=== PATIENT | male | born 1965 | race Caucasian/White ===

== ENCOUNTER 2021-06-03 06:01 | Outpatient (REF) | payer BC, SELFPAY ==
[2021-06-03 11:33] LABS: MANUAL DIFF FLAG NO
[2021-06-03 11:42] LABS: Basophils Absolute Auto 0.1 X10*3/uL (0.0-0.2); Basophils Percent Auto 1.9 % (0-2); Eosinophils Absolute Auto 1.1 X10*3/uL (0.0-0.4); Eosinophils Percent Auto 22.9 % (0-4); Hematocrit 43.6 % (42.0-52.0); Hemoglobin 14.7 g/dl (14.0-18.0); Imm Gran Abs Auto 0.01 X10*3/uL (0.00-0.03); Imm Gran Pct Auto 0.2 % (0.0-0.4); Lymphocytes Absolute Auto 1.5 X10*3/uL (1.2-4.9); Lymphocytes Percent Auto 31.8 % (20-40); Mean Corpuscular HGB Conc 33.7 g/dl (31.0-36.0); Mean Corpuscular Hemoglobin 31.6 pg (27.0-33.0); Mean Corpuscular Volume 93.8 fL (80.0-98.0); Monocytes Absolute Auto 0.4 X10*3/uL (0.1-1.2); Monocytes Percent Auto 7.6 % (2-11); Neutrophils Absolute Auto 1.73 x10*3/uL (2.0-8.3); Neutrophils Percent Auto 35.6 % (45-73); Platelet Count 233 X10*3/uL (160-400); Red Blood Count 4.65 X10*6/uL (4.60-5.80); Red Cell Distribution Width 13.1 % (11.0-16.0); White Blood Count 4.9 X10*3/uL (4.8-10.8)
[2021-06-03 11:59] LABS: Alanine Aminotransferase 25 U/L (0-40); Albumin Level 4.5 g/dL (3.5-5.0); Alkaline Phosphatase 61 U/L (39-117); Anion Gap 10 (12-20); Aspartate Amino Transferase 28 U/L (5-37); Bilirubin Total 0.5 mg/dL (0.0-1.0); Blood Urea Nitrogen 15 mg/dL (9-16); Calcium 9.3 mg/dL (8.4-10.2); Carbon Dioxide 30 mmol/L (22-29); Chloride 103 mmol/L (96-108); Cholesterol 192 mg/dL; Estimated Glomerular Filt Rate > 60; Glucose Fasting 92 mg/dL (60-99); HDL Cholesterol 52 mg/dL; LDL Cholesterol Calculated 107 mg/dl; Sodium 139 mmol/L (135-145); Triglycerides 166 mg/dL
== END 2021-06-03 06:02 | disposition home or self-care (01) ==
LOC: HO.HMGCLDS 06:01
PROVIDERS: PCP Internal Medicine; Visit Provider Internal Medicine
DX: Z00.01 Encounter for general adult medical examination with abnormal findings (principal); M72.0 Palmar fascial fibromatosis [Dupuytren]; L29.9 Pruritus, unspecified
CPT/HCPCS: 36415; 80053; 80061; 85025

== ENCOUNTER 2021-06-10 09:05 | Outpatient (REF) | payer BC, SELFPAY ==
--- NOTE | ~2021-06-10 | XR_ITS ---
EXAMINATION: XR CHEST CLINICAL INFORMATION: Cough COMPARISON: None TECHNIQUE: 2 views of the chest were obtained. FINDINGS: Cardiac silhouette is normal in size. The lungs are well aerated. There is no lobar consolidation. No pleural effusion or pneumothorax. No acute osseous abnormality. XR/XR chest 2V IMPRESSION: No acute pulmonary pathology.
== END 2021-06-10 09:06 | disposition home or self-care (01) ==
LOC: HO.HMGCX 09:05
PROVIDERS: PCP Internal Medicine; Visit Provider Physician Assistant Medical
DX: R05.9 Cough, unspecified (principal)
CPT/HCPCS: 71046

== ENCOUNTER 2021-07-01 14:38 | Outpatient (REF) | payer BC, SELFPAY ==
[2021-07-01 15:24] LABS: MANUAL DIFF FLAG NO
[2021-07-01 15:42] LABS: Basophils Absolute Auto 0.1 X10*3/uL (0.0-0.2); Basophils Percent Auto 0.6 % (0-2); Eosinophils Absolute Auto 0.1 X10*3/uL (0.0-0.4); Eosinophils Percent Auto 1.7 % (0-4); Hematocrit 45.3 % (42.0-52.0); Hemoglobin 15.5 g/dl (14.0-18.0); Imm Gran Abs Auto 0.02 X10*3/uL (0.00-0.03); Imm Gran Pct Auto 0.2 % (0.0-0.4); Lymphocytes Absolute Auto 1.5 X10*3/uL (1.2-4.9); Lymphocytes Percent Auto 17.9 % (20-40); Mean Corpuscular HGB Conc 34.2 g/dl (31.0-36.0); Mean Corpuscular Hemoglobin 31.9 pg (27.0-33.0); Mean Corpuscular Volume 93.2 fL (80.0-98.0); Monocytes Absolute Auto 0.7 X10*3/uL (0.1-1.2); Monocytes Percent Auto 8.6 % (2-11); Neutrophils Absolute Auto 5.8 x10*3/uL (2.0-8.3); Platelet Count 234 X10*3/uL (160-400); Red Blood Count 4.86 X10*6/uL (4.60-5.80); Red Cell Distribution Width 13.2 % (11.0-16.0); White Blood Count 8.1 X10*3/uL (4.8-10.8)
== END 2021-07-01 14:39 | disposition home or self-care (01) ==
LOC: HO.LAB 14:38
PROVIDERS: PCP Internal Medicine; Visit Provider Internal Medicine Pulmonary Disease
DX: J30.89 Other allergic rhinitis (principal); R05.9 Cough, unspecified
CPT/HCPCS: 36415; 82785; 85025; 86003

== ENCOUNTER 2021-07-08 15:36 | Outpatient (REF) | payer BC, SELFPAY ==
--- NOTE | 2021-07-08 17:43 | PFT_ITS ---
LOWS: FEV1 107% of predicted at 3.94 L. FVC 101% of predicted at 4.89 L. FEV1 to FVC ratio of 0.81. No bronchodilator response except in small to medium airways. LUNG VOLUMES: Total lung capacity 104% of predicted at 7.30 L. Residual volume 105% of predicted at 2.31 L. Slow vital capacity 104% of predicted at 4.98 L. Expiratory reserve volume 105% of predicted at 1.49 L. Diffusion capacity is normal. IMPRESSION: No obstructive or restrictive ventilatory defect. No bronchodilator response. Essentially normal pulmonary function test. Jamil Bridges MD AP/MODL / [id number]
== END 2021-07-08 15:37 | disposition home or self-care (01) ==
LOC: HO.RESP 15:36
PROVIDERS: PCP Internal Medicine; Visit Provider Internal Medicine Pulmonary Disease
DX: R05.9 Cough, unspecified (principal)
CPT/HCPCS: 94060; 94727; 94729

== ENCOUNTER → 2021-07-16 15:11 | Outpatient (BNVA) | payer BC, SELFPAY | PROVIDERS: PCP Internal Medicine; Visit Provider Internal Medicine Pulmonary Disease | DX: J30.89 Other allergic rhinitis (principal); R05.9 Cough, unspecified ==

== ENCOUNTER → 2021-11-05 15:19 | Outpatient (BNVA) | payer BC, SELFPAY | PROVIDERS: PCP Internal Medicine; Visit Provider Surgery Vascular Surgery | DX: Z13.89 Encounter for screening for other disorder (principal) ==

== ENCOUNTER 2021-12-12 07:46 | Outpatient (REF) | payer BC, SELFPAY ==
--- NOTE | ~2021-12-12 | US_ITS ---
EXAMINATION: US LOWER EXTREMITY VENOUS (REFLUX EXAM), BILATERAL CLINICAL INDICATION: This is a 56-year-old male with venous insufficiency and varicose veins. COMPARISON: None. TECHNIQUE: Color flow triplex imaging and compression Doppler was performed to evaluate both the deep and the superficial systems bilaterally. To evaluate the superficial system, the examination was performed in the upright position. Color-flow Doppler ultrasound and compression ultrasound were utilized. In addition, maneuvers were utilized to demonstrate reflux. FINDINGS: 1. DEEP VENOUS ULTRASOUND OF THE RIGHT LOWER EXTREMITY: Common Femoral Vein: Compressible, normal respiratory variation and augmented flow. Femoral vein: Compressible, normal color flow and augmentation. Popliteal Vein: Compressible, normal augmentation. Deep Reflux: There is no evidence of reflux in the deep system in either the common femoral vein or the popliteal vein. There is no evidence of a Masters's cyst. 2. SUPERFICIAL ULTRASOUND WITH DOPPLER OF RIGHT LOWER EXTREMITY: GREAT SAPHENOUS VEIN: Saphenofemoral Junction: 1.1 cm. The reflux time is 2820 ms. Mid Thigh: 0.7 cm. The reflux time is 3356 ms. Above Knee: 0.8 cm. The reflux time is 3212 ms. Below Knee: 0.7 cm. The reflux time is 3192 ms. Mid Calf: 0.3 cm. There is no reflux to Ankle: 0.3 cm. There is no reflux to GSV REFLUX: No evidence of reflux. DUPLICATED GREAT SAPHENOUS VEIN: None SMALL SAPHENOUS VEIN: Proximal: 0.4 cm Distal: 0.2 cm SSV REFLUX: No evidence of reflux. VEIN OF GIACOMINI: None Imaged. PERFORATORS: There is a 0.3 cm mid thigh chief medical director without reflux. VARICOSITIES: There are 0.5 cm and 0.9 cm, respectively, proximal calf varicose veins with greater than 2 seconds of reflux. There are anterior mid calf 0.6 cm varicose veins with greater than 3 seconds of reflux. 3. DEEP VENOUS ULTRASOUND OF THE LEFT LOWER EXTREMITY: Common Femoral Vein: Compressible, normal respiratory variation and augmented flow. Femoral Vein: Compressible, normal color flow and augmentation. Popliteal Vein: Compressible, normal augmentation. Deep Reflux: There is no evidence of reflux in the deep system in either the common femoral vein or the popliteal vein. There is no evidence of a Masters's cyst. 4. SUPERFICIAL ULTRASOUND WITH DOPPLER OF LEFT LOWER EXTREMITY: GREAT SAPHENOUS VEIN: Saphenofemoral Junction: 0.8 cm Mid Thigh: 0.3 cm Above Knee: 0.3 cm Below Knee: 0.3 cm Mid Calf: 0.2 cm Ankle: 0.2 cm GSV REFLUX: No evidence of reflux. DUPLICATED GREAT SAPHENOUS VEIN: None SMALL SAPHENOUS VEIN: Proximal: 0.1 cm Distal: 0.2 cm SSV REFLUX: No evidence of reflux. VEIN OF GIACOMINI: None Imaged. PERFORATORS: There are 0.5 cm mid thigh perforators without reflux. VARICOSITIES: None Imaged US/US venous duplex LE BI IMPRESSION: 1. There is a patent right great saphenous vein with reflux at the saphenofemoral junction which extends down below the knee. This is supplying the varicose veins. 2. There is a patent right small saphenous vein without reflux. 3. There are right calf varicose veins with reflux. There may be some thrombus within these varicose veins within the calf suggesting superficial thrombophlebitis. 4. There is a patent left great saphenous vein without reflux. 5. There is a patent left small saphenous vein without reflux. 6. No varicose veins are imaged in the left leg. However, perforators are identified.
== END 2021-12-12 07:47 | disposition home or self-care (01) ==
LOC: HO.US 07:46
PROVIDERS: Visit Provider Surgery Vascular Surgery
DX: I83.11 Varicose veins of right lower extremity with inflammation (principal)
CPT/HCPCS: 93970

== ENCOUNTER → 2021-12-19 15:29 | Outpatient (BNVA) | payer BC, SELFPAY | PROVIDERS: PCP Internal Medicine; Visit Provider Surgery Vascular Surgery | DX: I83.11 Varicose veins of right lower extremity with inflammation (principal) ==

== ENCOUNTER → 2021-12-27 07:27 | Outpatient (BNVA) | payer BC, SELFPAY | PROVIDERS: PCP Internal Medicine; Visit Provider Surgery Vascular Surgery | DX: I83.11 Varicose veins of right lower extremity with inflammation (principal) | CPT/HCPCS: 36475 ==

== ENCOUNTER 2021-12-31 08:20 | Outpatient (REF) | payer BC, SELFPAY ==
--- NOTE | ~2021-12-31 | US_ITS ---
EXAMINATION: US VENOUS ULTRASOUND WITH DOPPLER LOWER EXTREMITY, RIGHT CLINICAL INFORMATION: Pain in right leg. Post great saphenous vein ablation COMPARISON: Ultrasound 12/12/2021 TECHNIQUE: Ultrasound of the deep veins is performed from the hip to the calf with compression sonography and color and pulse Doppler assessment. Spectral analysis with color-flow imaging is performed. FINDINGS: There is normal venous compression and respiratory variation and augmented flow. The visualized common femoral vein, superficial femoral vein, profunda femoral vein, popliteal vein, and the trifurcation region shows no evidence of deep venous thrombosis. There is thrombosis/occlusion of the great saphenous vein extending to within 5 mm of the saphenofemoral junction. There is no significant popliteal fossa cyst. 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 While occlusion extends to within 5 mm of the saphenofemoral junction, there is no involvement of the deep system.
== END 2021-12-31 08:21 | disposition home or self-care (01) ==
LOC: HO.US 08:20
PROVIDERS: Visit Provider Surgery Vascular Surgery
DX: M79.604 Pain in right leg (principal)
CPT/HCPCS: 93971

== ENCOUNTER 2022-09-16 06:17 | Outpatient (REF) | payer BC, SELFPAY ==
[2022-09-16 11:28] LABS: MANUAL DIFF FLAG NO
[2022-09-16 11:32] LABS: Basophils Absolute Auto 0.1 X10*3/uL (0.0-0.2); Basophils Percent Auto 1.1 % (0-2); Eosinophils Absolute Auto 0.5 X10*3/uL (0.0-0.4); Eosinophils Percent Auto 10.6 % (0-4); Hemoglobin 15.1 g/dl (14.0-18.0); Lymphocytes Absolute Auto 1.8 X10*3/uL (1.2-4.9); Lymphocytes Percent Auto 39.6 % (20-40); Mean Corpuscular HGB Conc 33.6 g/dl (31.0-36.0); Mean Corpuscular Hemoglobin 30.8 pg (27.0-33.0); Mean Corpuscular Volume 91.8 fL (80.0-98.0); Monocytes Absolute Auto 0.4 X10*3/uL (0.1-1.2); Monocytes Percent Auto 8.8 % (2-11); Neutrophils Absolute Auto 1.8 x10*3/uL (2.0-8.3); Neutrophils Percent Auto 39.9 % (45-73); Platelet Count 220 X10*3/uL (160-400); Red Cell Distribution Width 13.3 % (11.0-16.0); White Blood Count 4.5 X10*3/uL (4.8-10.8)
[2022-09-16 12:03] LABS: Alanine Aminotransferase 31 U/L (0-40); Albumin Level 4.4 g/dL (3.5-5.0); Alkaline Phosphatase 66 U/L (39-117); Anion Gap 14 (12-20); Aspartate Amino Transferase 28 U/L (5-37); Bilirubin Total 0.7 mg/dL (0.0-1.0); Blood Urea Nitrogen 20 mg/dL (9-16); Calcium 9.6 mg/dL (8.4-10.2); Carbon Dioxide 26 mmol/L (22-29); Chloride 105 mmol/L (96-108); Cholesterol 218 mg/dL; Estimated Glomerular Filt Rate > 60; Glucose Fasting 97 mg/dL (60-99); HDL Cholesterol 54 mg/dL; LDL Cholesterol Calculated 130 mg/dl; Potassium 4.2 mmol/L (3.3-5.1); Sodium 141 mmol/L (135-145); Total Protein 6.7 g/dL (6.5-8.0); Triglycerides 174 mg/dL
== END 2022-09-16 06:18 | disposition home or self-care (01) ==
LOC: HO.HMGCLDS 06:17
PROVIDERS: PCP Internal Medicine; Visit Provider Internal Medicine
DX: Z00.00 Encounter for general adult medical examination without abnormal findings (principal)
CPT/HCPCS: 36415; 80053; 80061; 85025

== ENCOUNTER 2023-06-17 08:28 | Outpatient (AMB) | payer BC, SELFPAY ==
--- NOTE | 2023-06-17 08:44 | AM.OFFVISNUR ---
Intake Intake Visit Reasons: Flu Vaccine Intake Note: Pt arrived for annual flu vaccine Allergies No Known Allergies Allergy (Verified 09/03/22 15:18) Office Procedures Flu Questionnaire Does the patient have a severe egg allergy?: No Does the patient have severe life threatening allergies?: No Does the patient have a fever or illness today?: No Has the patient ever had Guillain-Ringwood Syndrome?: No Has the patient ever had any past reaction to a flu shot?: No Immunizations flu vacc [id number] 6mos up(PF) 60 mcg(15 mcgx4)/0.5 mL IM syringe Performing Provider: Arsenio Schmidt MD Performing Location: [facility] Administered by: Ann-Marie Pearl RN on 06/17/23 08:44 Dose Route Admin Location Dispensed Lot Number Expiration Date NDC [employer] Laboratory Technician 0.5 mL IM Right Deltoid 0.5 mL [id number] 01/31/24 [id number] [employer] VIS Given Date VIS Provided VIS Publication Date 06/17/23 Single Vaccine 21 Eligibility Eligibility Date Funding Source Not [facility] Eligible 06/17/23 Private Coding Assessment & Plan Assessment & Plan Orders: Orders Influenza [id number] Immunization Today Z23 - Encounter for immunization
== END 2023-06-17 09:09 | disposition home or self-care (01) ==
PROVIDERS: PCP Internal Medicine; Visit Provider Internal Medicine
DX: Z23 Encounter for immunization (principal)
CPT/HCPCS: 90471; 90686

== ENCOUNTER 2023-11-04 10:48 | Outpatient (AMB) | payer OTHER, SELFPAY ==
[2023-11-04 10:52] VITALS: BP 106/66; PULSE 64; O2SAT 97; BMI 22.5
--- NOTE | 2023-11-04 10:52 | A.OFFPC_ITS ---
Vital Signs 11/04/23 10:52 Height 5 ft 10 in Weight 157 lb BMI 22.5 BP 106/66 Blood Pressure Location Rt brachial Position Sitting Pulse 64 Pulse Source Pulse Oximeter Pulse Oximetry (%) 97 Oxygen Delivery Method Room Air Intake Visit Reasons: Annual PE Allergies No Known Allergies Allergy (Verified 11/04/23 10:53) Medication List - Last Reconciled 11/04/23 by Arseino Schmidt MD cetirizine (Zyrtec) 10 mg PO DAILY PRN Tobacco use date assessed: 11/04/23 Dental Screening Dental Screen Date: 11/04/23 Did you have a dental visit in the last 12 months?: Yes Did you have a dental problem in the last 6 months where you did not have access to dental care?: No Was dental information given to patient?: Patient has dentist HPI Annual PE HPI Details Patient is 58-year-old gentleman He is due for colonoscopy, referral placed Lab order placed to be done fasting, we do labs once a year when he comes in for annual exam On examination I sensed some irregularity in his heart rate We did the EKG which showed bradycardia heart rate of 49 per minute Patient says that when he is sleeping sometimes is heart rate goes as low as 30 I do see small Q-waves in lateral leads I have sent an image of EKG to Cardiology for E consultation [facility] Surgical History Status post ablation of incompetent vein using laser (12/27/21) Social History Housing: House Patient Tobacco Use Status: Never used Tobacco e-Cigarette/Vaping Use: Never Used Second Hand Smoke Exposure: No service: Yes Current occupational status: employed Cognitive needs: No Hearing needs: No Vision needs: Yes Questionnaire PHQ-9 Over the last 2 weeks, how often have you been bothered by any of the following problems? 1. Little interest or pleasure in doing things: not at all 2. Feeling down, depressed, or hopeless: not at all 3. Trouble falling or staying asleep, or sleeping too much: several days 4. Feeling tired or having little energy: not at all 5. Poor appetite or overeating: not at all 6. Feeling bad about yourself - or that you are a failure or have let yourself or your family down: not at all 7. Trouble concentrating on things, such as reading the newspaper or watching television: not at all 8. Moving or speaking so slowly that other people could have noticed. Or the opposite - being so fidgety or restless that you have been moving around a lot more than usual: not at all 9. Thoughts that you would be better off or of hurting yourself in some way: not at all Total score: 1 Depression Screening Interpretation: Negative Depression Screening Done: Yes 76172 - PHQ-9 Billing: Yes Source: Developed by Drs. Rajesh Barajas, Reema Mathew, Alfonzo Pressley and colleagues, with an educational phan from [employer]. Thrive Questionnaire Date Thrive assessed: 11/04/23 I am a: Patient What is your living situation today?: I have a steady place to live Within the past 12 months, did the food you bought not last and you didn't have the money to get more?: Never true Within the past 12 months, did you worry whether your food would run out before you got money to buy more?: Never true Do you have trouble paying for medicines?: No Do you have trouble getting transportation to medical appointments?: No Do you have trouble paying your heating and electricity bill?: No Do you have trouble taking care of your child, family member or friend?: No Do you have trouble with day-to-day activities such as bathing, preparing meals, shopping, managing finances, etc.?: No Are you currently unemployed and looking for a job?: No Are you interested in more education?: No Please select the resources that you would like help with: None Currently or been in a relationship where the following occur: no concerns reported THRIVE Score: 0 AUDIT C Alcohol Use Questionnaire (AUDIT-C) 1. How often do you have a drink containing alcohol?: 2-4 times a month 2. How many drinks containing alcohol do you have on a typical day when you are drinking?: 1 or 2 3. How often do you have six or more drinks on one occasion?: Never Total Score: 2 Score Reviewed/Action Taken: No LU-7 AMB Questionnaire LU-7 Date LU - 7 assessed: 11/04/23 Feeling nervous, anxious, or on edge: 0 = Not at all Not being able to stop or control worryin = Not at all Worrying too much about different things: 1 = Several days Trouble relaxin = Several days Being so restless that it is hard to sit still: 0 = Not at all Becoming easily annoyed or irritable: 0 = Not at all Feeling afraid as if something awful might happen: 0 = Not at all Total LU-7 score (0-4 normal; 5-9 mild; 10-14 moderate; 15-21 severe): 2 Source: Developed by Drs. Rajesh Barajas, Reema Mathew, Alfonzo Pressley and colleagues, with an educational phan from [employer]. LU-7 Assessment Billing LU-7 Assessment Tool: LU-7 Assessment 56345 Review of Systems Const Denies chills, Denies fever(s) and Denies headache(s) Eyes Denies blurry vision ENT Denies headache(s), Denies nasal discharge, Denies nasal obstruction, Denies odynophagia and Denies sinus pain Card Denies chest pain at rest and Denies chest pain with activity Resp Denies cough and Denies hemoptysis GI Denies diarrhea, Denies odynophagia, Denies vomiting and Denies hematemesis Reports as per HPI Musc Denies abnormal gait Skin/Breast Reports as per HPI Neuro Denies Neuro-related abnormal movements, Denies Abnormal speech present, Denies abnormal gait, Denies headache(s) and Denies Sensory deficit (Neuro) Psych Denies mood swings and Denies paranoia Endo Reports as per HPI Oswaldo/Lymph Reports as per HPI Aller/Immun Reports as per HPI Physical exam (Primary Care) Vital Signs: Last Vital Signs Pulse 64 11/04/23 10:52 BP 106/66 11/04/23 10:52 Pulse Ox 97 11/04/23 10:52 Oxygen Delivery Method Room Air 11/04/23 10:52 BMI result Body Mass Index 22.5 Tobacco/Smoking Status: Tobacco use Status Tobacco use date assessed 11/04/23 11/04/23 10:56 Patient Tobacco Use Status Never used Tobacco 11/04/23 10:56 e-Cigarette/Vaping Use Never Used 11/04/23 10:56 PHQ-9: PHQ-9 Score PHQ-9: Total score 1 11/04/23 11:20 Depression Screening Interpretation: Negative Thrive Assessment: Date of Thrive Assessment Date Thrive assessed 11/04/23 11/04/23 11:01 Currently or been in a relationship where the following occur: no concerns reported Const General: cooperative, comfortable and no acute distress Orientation/consciousness: patient oriented x3 HENMT Head: Yes normocephalic and Yes atraumatic Eyes General: appearance normal, both eyes and all related structures Pupils: Equal, round and reactive pupils present EOM: EOMs intact bilaterally Neck Neck: Yes supple and No lymphadenopathy Thyroid: Thyroid normal Lymphatic: no lymphadenopathy noted Resp Effort & Inspection: normal respiratory effort and able to speak in complete sentences Auscultation: clear to auscultation bilaterally Cardio Heart sounds: S1 normal heart sound present and S2 normal heart sound present GI Palpation (GI): Soft to palpation and nontender Auscultation: normal bowel sounds General: Yes no CVA tenderness Back/Spine/Pelvis Back: no CVA tenderness Skin General skin exam: elasticity normal and turgor normal Neuro General: patient oriented x3 and gait normal Cranial nerves: Yes Equal, round and reactive pupils present Speech: No Abnormal speech present Sensory Exam: No Sensory deficit (Neuro) Coordination: tandem gait normal and Romberg test negative Extrem General: Yes normal exam except as noted and No edema Assessment and Plan Assessment & Plan (1) Encounter for general adult medical examination with abnormal findings: Code(s): Z00.01 - Encounter for general adult medical examination with abnormal findings (2) Bradycardia: Code(s): R00.1 - Bradycardia, unspecified (3) Colon cancer screening: Code(s): Z12.11 - Encounter for screening for malignant neoplasm of colon Plan Patient is 58-year-old gentleman He is due for colonoscopy, referral placed Lab order placed to be done fasting, we do labs once a year when he comes in for annual exam On examination I sensed some irregularity in his heart rate We did the EKG which showed bradycardia heart rate of 49 per minute Patient says that when he is sleeping sometimes is heart rate goes as low as 30 I do see small Q-waves in lateral leads I have sent an image of EKG to Cardiology for E consultation Orders: Orders Complete Blood Count Auto Diff Today I49.9 - Cardiac arrhythmia, unspecified, Z00.01 - Encounter for general adult medical examination with abnormal findings Comprehensive [place]. Panel Fast Today I49.9 - Cardiac arrhythmia, unspecified, Z00.01 - Encounter for general adult medical examination with abnormal findings Lipid Panel Today I49.9 - Cardiac arrhythmia, unspecified, Z00.01 - Encounter for general adult medical examination with abnormal findings TSH reflex Free T4 Today I49.9 - Cardiac arrhythmia, unspecified, Z00.01 - Encounter for general adult medical examination with abnormal findings AMB EKG-In Office Today I49.9 - Cardiac arrhythmia, unspecified Referrals Gastroenterology Referral Z12.11 - Encounter for screening for malignant neoplasm of colon Coding Level of Care Code Est Pt Prev Care 40-64y(48903) Diagnoses Encounter for general adult medical examination with abnormal findings Z00.01 Bradycardia R00.1 Colon cancer screening Z12.11 Additional Codes LU-7 Assessment Billing - LU-7 Assessment Tool: LU-7 Assessment [id number] ([id number])
== END 2023-11-04 12:19 | disposition home or self-care (01) ==
PROVIDERS: PCP Internal Medicine; Visit Provider Internal Medicine
DX: Z00.00 Encounter for general adult medical examination without abnormal findings (principal); R00.1 Bradycardia, unspecified; Z12.11 Encounter for screening for malignant neoplasm of colon
CPT/HCPCS: 93000; 99396

== ENCOUNTER → 2023-11-04 14:25 | Outpatient (BNV) | payer OTHER, SELFPAY ==
--- NOTE | 2023-11-04 14:25 | A.ECONSULT ---
E-Consult Requesting Provider: Arsenio Schmidt Reason for request: Sinus bradycardia Was there a discussion with the requesting provider?: No Total time spent: >5 minutes Consulting Provider Opinion: In truly asymptomatic patients with sinus bradycardia who are in excellent aerobic shape, sinus bradycardia is often physiologic and no further workup is indicated. If patient develops any symptoms of slow heart rate or chronotropic incompetence you can consult Cardiology. He can also consider Holter monitor to assess for any asymptomatic pauses
== END ==
PROVIDERS: PCP Internal Medicine; Visit Provider Internal Medicine Cardiovascular Disease
DX: R00.1 Bradycardia, unspecified (principal)
CPT/HCPCS: 99451

== ENCOUNTER 2023-11-06 06:01 | Outpatient (REF) | payer OTHER, SELFPAY ==
[2023-11-06 10:25] LABS: MANUAL DIFF FLAG NO
[2023-11-06 10:45] LABS: Basophils Absolute Auto 0.1 X10*3/uL (0.0-0.2); Basophils Percent Auto 1.4 % (0-2); Eosinophils Absolute Auto 0.4 X10*3/uL (0.0-0.4); Eosinophils Percent Auto 8.7 % (0-4); Hematocrit 44.7 % (42.0-52.0); Hemoglobin 14.7 g/dl (14.0-18.0); Lymphocytes Absolute Auto 1.8 X10*3/uL (1.2-4.9); Lymphocytes Percent Auto 42.4 % (20-40); Mean Corpuscular HGB Conc 32.9 g/dl (31.0-36.0); Mean Corpuscular Hemoglobin 31.4 pg (27.0-33.0); Mean Corpuscular Volume 95.5 fL (80.0-98.0); Mean Platelet Volume 11.3 fL (9.4-12.4); Monocytes Absolute Auto 0.3 X10*3/uL (0.1-1.2); Monocytes Percent Auto 7.5 % (2-11); Neutrophils Absolute Auto 1.7 x10*3/uL (2.0-8.3); Platelet Count 182 X10*3/uL (160-400); Red Blood Count 4.68 X10*6/uL (4.60-5.80); Red Cell Distribution Width 13.4 % (11.0-16.0); White Blood Count 4.3 X10*3/uL (4.8-10.8)
[2023-11-06 11:18] LABS: Alanine Aminotransferase 33 U/L (0-40); Albumin Level 4.2 g/dL (3.5-5.0); Alkaline Phosphatase 60 U/L (39-117); Anion Gap 11 (12-20); Aspartate Amino Transferase 27 U/L (5-37); Bilirubin Total 0.6 mg/dL (0.0-1.0); Blood Urea Nitrogen 18 mg/dL (9-16); Calcium 9.3 mg/dL (8.4-10.2); Carbon Dioxide 29 mmol/L (22-29); Chloride 103 mmol/L (96-108); Cholesterol 173 mg/dL (<200); Estimated Glomerular Filt Rate > 60; Glucose Fasting 96 mg/dL (60-99); HDL Cholesterol 57 mg/dL (>40); LDL Cholesterol Calculated 98 mg/dL (<100); Potassium 3.6 mmol/L (3.3-5.1); Sodium 139 mmol/L (135-145); Total Protein 6.7 g/dL (6.5-8.0); Triglycerides 90 mg/dL (<150)
[2023-11-06 11:34] LABS: TSH reflex Free T4 2.45 uIU/mL (0.32-4.0)
== END 2023-11-06 06:02 | disposition home or self-care (01) ==
LOC: HO.HMGCLDS 06:01
PROVIDERS: PCP Internal Medicine; Visit Provider Internal Medicine
DX: Z00.01 Encounter for general adult medical examination with abnormal findings (principal); Z13.6 Encounter for screening for cardiovascular disorders; I49.9 Cardiac arrhythmia, unspecified
CPT/HCPCS: 36415; 80053; 80061; 84443; 85025

== ENCOUNTER 2024-05-11 09:18 | Outpatient (AMB) | payer OTHER, SELFPAY ==
--- NOTE | 2024-05-11 10:12 | MHC.OFFVIS ---
Intake Visit Reasons: FluShot Allergies No Known Allergies Allergy (Verified 11/04/23 10:53) HPI HPI FluShot: Details: Patient came in today to have a flu vaccine PENDING SALE TO [facility] Surgical History Status post ablation of incompetent vein using laser (12/27/21) Social History Housing: House Patient Tobacco Use Status: Never used Tobacco e-Cigarette/Vaping Use: Never Used Second Hand Smoke Exposure: No service: Yes Current occupational status: employed Cognitive needs: No Hearing needs: No Vision needs: Yes Office Procedures Flu Questionnaire Does the patient have a severe egg allergy?: No Does the patient have severe life threatening allergies?: No Does the patient have a fever or illness today?: No Has the patient ever had Guillain-[place] Syndrome?: No Has the patient ever had any past reaction to a flu shot?: No Assessment & Plan Assessment & Plan (1) Immunizations incomplete: Code(s): Z28.39 - Other underimmunization status Category: Medical Plan Patient came in today to have flu vaccine Orders: Orders Influenza [id number] Immunization Today Z23 - Encounter for immunization Coding Level of Care Code Est Pt Level 2 (15037) Diagnoses Immunizations incomplete Z28.39
== END 2024-05-11 10:27 | disposition home or self-care (01) ==
PROVIDERS: PCP Internal Medicine; Visit Provider Internal Medicine
DX: Z23 Encounter for immunization (principal); Z28.39 Other underimmunization status

== ENCOUNTER → 2024-05-11 09:18 | Outpatient (BNVA) | payer OTHER, SELFPAY | PROVIDERS: PCP Internal Medicine; Visit Provider Internal Medicine | DX: Z23 Encounter for immunization (principal) | CPT/HCPCS: 90471; 90656; 99212 ==

== ENCOUNTER 2024-11-16 11:12 | Outpatient (AMB) | payer OTHER, SELFPAY ==
[2024-11-16 11:15] VITALS: BP 102/64; PULSE 63; O2SAT 97; BMI 22.5
--- NOTE | 2024-11-16 11:15 | A.OFFPC_ITS ---
Vital Signs 11/16/24 11:15 Height 5 ft 10 in Weight 157 lb 2 oz BMI 22.5 BP 102/64 Blood Pressure Location Lt brachial Position Sitting Pulse 63 Pulse Source Pulse Oximeter Pulse Oximetry (%) 97 Oxygen Delivery Method Room Air Intake Visit Reasons: Annual PE Allergies No Known Allergies Allergy (Verified 11/16/24 11:15) Medication List - Last Reconciled 11/16/24 by Arsenio Schmidt MD cetirizine (Zyrtec) 10 mg PO DAILY PRN Tobacco use date assessed: 11/16/24 Dental Screening Dental Screen Date: 11/16/24 Did you have a dental visit in the last 12 months?: Yes Did you have a dental problem in the last 6 months where you did not have access to dental care?: No Was dental information given to patient?: Patient has dentist HPI Annual PE HPI Details Physical exam appointment - The patient is a 59-year-old male pres enting with right big toe pain. - The patient describes the pain as inte rmittent, sometimes throbbing and intense enough to wake him at night. - The pain has been present since his visit, and it affects him during standing, while at other times it is not noticeable. - The toe joint is inflamed, and the pat ient inquires if it might be age- related. - No known family history of gout. - The patient has not identified specifi c causes for exacerbations or relief measures for the pain, noting the condition comes and goes. - Previously managed with massages, incl uding a massage gun, and choosing com fortable footwear. - Recently, pain frequency has decreased , with occasional weeks without notable pain. - patient does drink protein shakes and it meat as well Health Maintenance - The patient is practicing increased ph ysical activity, including swimming three times a week and yoga six mornings a week. - Strength training adjusted to include more flexibility to maintain an ideal BMI. - Last colonoscopy conducted when the pa tient turned 58, within the last two years. - Eye exams performed every two years as per insurance coverage, next due soon. Medications - Cetirizine for allergies, used as need ed. 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 - Currently job hunting, but desires to remain active professionally and not fully retire. - Mentioned snf on due to benefits planning related to government rules. Diagnostic results - Labs to be conducted to check uric aci d levels as part of gout assessment. Patient Instructions - Continue to monitor right toe pain and note any patterns or triggers. - As previously managed, use massage for pain relief and appropriate footwear. - Resume labs fasting for uric acid leve ls to assist in diagnosis and management planning. Review of Systems - General: No fever no chills - Neurological: No headaches no dizzin ess - Ear nose throat: No sore throat no hearing difficulty no ear pain - Cardiovascular: No syncope, no chest pain, no palpitations - Gastrointestinal: No nausea vomiting or diarrhea - Endocrine: No polyuria polydipsia no heat intolerance - Genitourinary: No dysuria - Skin: No new complaints Physical Exam General: Cooperative, healthy appearing, comfortable, no acute distress Orientation: Patient oriented x3 Limitations: None Head: Normal to inspection Ears: Within normal limit visually Nose: Normal external nose present Face and sinus: Normal facial exam Eyes: Appearance normal, extraocular movement intact pupils reactive Neck: Normal visual inspection and supple Respiratory: Normal respiratory effort and able to speak in complete sentences. Clear to auscultation, no stridor Cardiovascular: S1 and S2 RRR GI: Normal to inspection. Soft to palpation and nontender Skin: Turgor normal, no acute findings Neuro: Patient oriented x3, motor sensory intact, balance intact, tandem pass Extremities: Normal to inspection, except for the right big toe which is slightly sore with palpation [facility] Surgical History Status post ablation of incompetent vein using laser (12/27/21) Social History Housing: House Patient Tobacco Use Status: Never used Tobacco e-Cigarette/Vaping Use: Never Used Second Hand Smoke Exposure: No service: Yes Current occupational status: employed Cognitive needs: No Hearing needs: No Vision needs: Yes Questionnaire PHQ-9 Over the last 2 weeks, how often have you been bothered by any of the following problems? 1. Little interest or pleasure in doing things: not at all 2. Feeling down, depressed, or hopeless: not at all 3. Trouble falling or staying asleep, or sleeping too much: not at all 4. Feeling tired or having little energy: not at all 5. Poor appetite or overeating: not at all 6. Feeling bad about yourself - or that you are a failure or have let yourself or your family down: not at all 7. Trouble concentrating on things, such as reading the newspaper or watching television: not at all 8. Moving or speaking so slowly that other people could have noticed. Or the opposite - being so fidgety or restless that you have been moving around a lot more than usual: not at all 9. Thoughts that you would be better off or of hurting yourself in some way: not at all Total score: 0 Depression Screening Interpretation: Negative Depression Screening Done: Yes 05336 - PHQ-9 Billing: Yes Source: Developed by Drs. Rajesh Barajas, Reema Mathew, Alfonzo Pressley and colleagues, with an educational phan from [employer]. Thrive Questionnaire Date Thrive assessed: 11/16/24 I am a: Patient What is your living situation today?: I have a steady place to live Within the past 12 months, did the food you bought not last and you didn't have the money to get more?: Never true Within the past 12 months, did you worry whether your food would run out before you got money to buy more?: Never true Do you have trouble paying for medicines?: No Do you have trouble getting transportation to medical appointments?: No Do you have trouble paying your heating and electricity bill?: No Do you have trouble taking care of your child, family member or friend?: No Do you have trouble with day-to-day activities such as bathing, preparing meals, shopping, managing finances, etc.?: No Are you currently unemployed and looking for a job?: Yes Are you interested in more education?: No Please select the resources that you would like help with: None Currently or been in a relationship where the following occur: No concerns reported THRIVE Score: 0 AUDIT C Alcohol Use Questionnaire (AUDIT-C) 1. How often do you have a drink containing alcohol?: 2-3 times a week 2. How many drinks containing alcohol do you have on a typical day when you are drinking?: 1 or 2 3. How often do you have six or more drinks on one occasion?: Never Total Score: 3 Score Reviewed/Action Taken: Yes LU-7 AMB Questionnaire LU-7 Date LU - 7 assessed: 11/16/24 Feeling nervous, anxious, or on edge: 0 = Not at all Not being able to stop or control worryin = Not at all Worrying too much about different things: 0 = Not at all Trouble relaxin = Not at all Being so restless that it is hard to sit still: 0 = Not at all Becoming easily annoyed or irritable: 0 = Not at all Feeling afraid as if something awful might happen: 0 = Not at all Total LU-7 score (0-4 normal; 5-9 mild; 10-14 moderate; 15-21 severe): 0 Source: Developed by Drs. Rajesh Barajas, Reema Mathew, Alfonzo Pressley and colleagues, with an educational phan from [employer]. LU-7 Assessment Billing LU-7 Assessment Tool: LU-7 Assessment 21264 Physical exam (Primary Care) Vital Signs: Last Vital Signs Pulse 63 11/16/24 11:15 BP 102/64 11/16/24 11:15 Pulse Ox 97 11/16/24 11:15 Oxygen Delivery Method Room Air 11/16/24 11:15 BMI result Body Mass Index 22.5 Tobacco/Smoking Status: Tobacco use Status Tobacco use date assessed 11/16/24 11/16/24 11:17 Patient Tobacco Use Status Never used Tobacco 11/16/24 11:17 e-Cigarette/Vaping Use Never Used 11/16/24 11:17 PHQ-9: PHQ-9 Score PHQ-9: Total score 0 11/16/24 11:46 Depression Screening Interpretation: Negative Thrive Assessment: Date of Thrive Assessment Date Thrive assessed 11/16/24 11/16/24 11:17 Currently or been in a relationship where the following occur: No concerns reported Coding Level of Care Code Est Pt Level 3 (88089) Est Pt Prev Care 40-64y(31210) Diagnoses Encounter for general adult medical examination without abnormal findings Z00.00 Toe pain, right M79.674 Additional Codes LU-7 Assessment Billing - LU-7 Assessment Tool: LU-7 Assessment 10200 ([id number]) PHQ-9 - 65963 - PHQ-9 Billing: Yes ([id number]) Assessment & Plan Assessment & Plan (1) Encounter for general adult medical examination without abnormal findings: Code(s): Z00.00 - Encounter for general adult medical examination without abnormal findings Category: Medical (2) Toe pain, right: Code(s): M79.674 - Pain in right toe(s) Category: Medical Plan Physical exam appointment - The patient is a 59-year-old male presenting with right big toe pain. - The patient describes the pain as intermittent, sometimes throbbing and intense enough to wake him at night. - The pain has been present since his last visit, and it affects him during standing, while at other times it is not noticeable. - The toe joint is inflamed, and the patient inquires if it might be age- related. - No known family history of gout. - The patient has not identified specific causes for exacerbations or relief measures for the pain, noting the condition comes and goes. - Previously managed with massages, including a massage gun, and choosing comfortable footwear. - Recently, pain frequency has decreased, with occasional weeks without notable pain. - patient does drink protein shakes and it meat as well Health Maintenance - The patient is practicing increased physical activity, including swimming three times a week and yoga six mornings a week. - Strength training adjusted to include more flexibility to maintain an ideal BMI. - Last colonoscopy conducted when the patient turned 58, within the last two years. - Eye exams performed every two years as per insurance coverage, next due soon. Medications - Cetirizine for allergies, used as needed. 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 - Currently job hunting, but desires to remain active professionally and not ful ly retire. - Mentioned snf on due to benefits planning related to government rules. Diagnostic results - Labs to be conducted to check uric acid levels as part of gout assessment. Patient Instructions - Continue to monitor right toe pain and note any patterns or triggers. - As previously managed, use massage for pain relief and appropriate footwear. - Resume labs fasting for uric acid levels to assist in diagnosis and management planning. Orders: Orders Comprehensive [place]. Panel Fast Today M79.674 - Pain in right toe(s), Z00.00 - Encounter for general adult medical examination without abnormal findings UA CC w/rflx Micro + Cult Today M79.674 - Pain in right toe(s), Z00.00 - Encounter for general adult medical examination without abnormal findings Complete Blood Count Auto Diff Today M79.674 - Pain in right toe(s), Z00.00 - Encounter for general adult medical examination without abnormal findings Lipid Panel Today M79.674 - Pain in right toe(s), Z00.00 - Encounter for gener al adult medical examination without abnormal findings Vitamin D 25-OH (D2 and D3) Today M79.674 - Pain in right toe(s), Z00.00 - Encounter for general adult medical examination without abnormal findings TSH reflex Free T4 Today M79.674 - Pain in right toe(s), Z00.00 - Encounter for general adult medical examination without abnormal findings Uric Acid Today M79.674 - Pain in right toe(s) Prostate Specific Antigen Today Z00.00 - Encounter for general adult medical examination without abnormal findings
== END 2024-11-16 11:49 | disposition home or self-care (01) ==
LOC: HO.HMCC 11:13
PROVIDERS: PCP Internal Medicine; Visit Provider Internal Medicine
DX: Z00.00 Encounter for general adult medical examination without abnormal findings (principal); M79.674 Pain in right toe(s)

== ENCOUNTER → 2024-11-16 11:12 | Outpatient (BNVA) | payer OTHER, SELFPAY | PROVIDERS: PCP Internal Medicine; Visit Provider Internal Medicine | DX: Z00.01 Encounter for general adult medical examination with abnormal findings (principal); M79.674 Pain in right toe(s) | CPT/HCPCS: 96127; 99212 ==

== ENCOUNTER 2024-11-17 06:07 | Outpatient (REF) | payer OTHER, SELFPAY ==
[2024-11-17 10:09] LABS: MANUAL DIFF FLAG NO
[2024-11-17 10:13] LABS: Basophils Absolute Auto 0.1 X10*3/uL (0.0-0.2); Basophils Percent Auto 1.4 % (0-2); Eosinophils Absolute Auto 0.5 X10*3/uL (0.0-0.4); Eosinophils Percent Auto 12.3 % (0-4); Hematocrit 45.3 % (42.0-52.0); Hemoglobin 15.3 g/dl (14.0-18.0); Lymphocytes Absolute Auto 1.6 X10*3/uL (1.2-4.9); Lymphocytes Percent Auto 36.8 % (20-40); Mean Corpuscular HGB Conc 33.8 g/dl (31.0-36.0); Mean Corpuscular Hemoglobin 31.7 pg (27.0-33.0); Mean Platelet Volume 10.8 fL (9.4-12.4); Monocytes Absolute Auto 0.4 X10*3/uL (0.1-1.2); Neutrophils Absolute Auto 1.8 x10*3/uL (2.0-8.3); Neutrophils Percent Auto 41.5 % (45-73); Platelet Count 204 X10*3/uL (160-400); Red Blood Count 4.82 X10*6/uL (4.60-5.80); Red Cell Distribution Width 13.2 % (11.0-16.0); White Blood Count 4.4 X10*3/uL (4.8-10.8)
[2024-11-17 10:43] LABS: Prostate Specific Antigen 0.67 ng/mL (<0.05-4.0)
[2024-11-17 10:54] LABS: Albumin Level 4.5 g/dL (3.5-5.0); Anion Gap 12 (12-20); Aspartate Amino Transferase 41 U/L (5-37); Bilirubin Total 0.5 mg/dL (0.0-1.0); Blood Urea Nitrogen 20 mg/dL (9-16); Calcium 9.7 mg/dL (8.4-10.2); Carbon Dioxide 29 mmol/L (22-29); Chloride 103 mmol/L (96-108); Cholesterol 199 mg/dL (<200); Estimated Glomerular Filt Rate > 60; Glucose Fasting 89 mg/dL (60-99); HDL Cholesterol 63 mg/dL (>40); LDL Cholesterol Calculated 112 mg/dL (<100); Potassium 4.1 mmol/L (3.3-5.1); Sodium 140 mmol/L (135-145); Total Protein 7.3 g/dL (6.5-8.0); Triglycerides 120 mg/dL (<150); Uric Acid 5.4 mg/dL (3.4-7.0)
[2024-11-17 11:05] LABS: TSH reflex Free T4 2.18 uIU/mL (0.32-4.0)
[2024-11-17 11:08] LABS: Alkaline Phosphatase 70 U/L (39-117)
[2024-11-17 11:25] LABS: Alanine Aminotransferase 34 U/L (0-40)
[2024-11-17 16:21] LABS: Appearance Urine Clear; Color Urine Yellow; Glucose Urine UA Negative (Negative); Leukocyte Esterase Urine Negative (Negative); Nitrite Urine Negative (Negative); Specific Gravity - Urine <= 1.005 (1.005-1.025); Urine Blood Negative (Negative); Urine Ketones Negative (Negative); Urine Protein Negative (Neg-Trace)
[2024-11-21 16:13] LABS: Vitamin D 25-OH, D2 <4 ng/mL; Vitamin D 25-OH, D3 52 ng/mL; Vitamin D 25-OH, Total 52 ng/mL (30-100)
== END 2024-11-17 06:08 | disposition home or self-care (01) ==
LOC: HO.HMGCLDS 06:07
PROVIDERS: PCP Internal Medicine; Visit Provider Internal Medicine
DX: Z00.00 Encounter for general adult medical examination without abnormal findings (principal); M79.674 Pain in right toe(s)
CPT/HCPCS: 36415; 80053; 80061; 81003; 82306; 84153; 84443; 84550; 85025

== ENCOUNTER 2025-02-22 08:24 | Outpatient (REF) | payer OTHER, SELFPAY ==
[2025-02-22 10:27] LABS: MANUAL DIFF FLAG NO
[2025-02-22 10:38] LABS: Hematocrit 42.0 % (42.0-52.0); Hemoglobin 14.4 g/dl (14.0-18.0); Imm Gran Abs Auto 0.01 X10*3/uL (0.00-0.03); Imm Gran Pct Auto 0.2 % (0.0-0.4); Lymphocytes Absolute Auto 1.7 X10*3/uL (1.2-4.9); Mean Corpuscular HGB Conc 34.3 g/dl (31.0-36.0); Mean Corpuscular Hemoglobin 32.1 pg (27.0-33.0); Mean Corpuscular Volume 93.8 fL (80.0-98.0); NRBC Abs Auto 0.000 X10*3/uL (0.0-0.012); NRBC Pct Auto 0.0 /100WBC (0.0-0.2); Platelet Count 198 X10*3/uL (160-400); Red Blood Count 4.48 X10*6/uL (4.60-5.80); White Blood Count 4.7 X10*3/uL (4.8-10.8)
[2025-02-22 10:56] LABS: Alanine Aminotransferase 31 U/L (0-40); Albumin Level 4.4 g/dL (3.5-5.0); Alkaline Phosphatase 64 U/L (39-117); Aspartate Amino Transferase 34 U/L (5-37); Total Protein 6.7 g/dL (6.5-8.0); Uric Acid 5.5 mg/dL (3.4-7.0)
== END 2025-02-22 08:25 | disposition home or self-care (01) ==
LOC: HO.HMGCLDS 08:24
PROVIDERS: PCP Internal Medicine; Visit Provider Internal Medicine
DX: M79.645 Pain in left finger(s) (principal); M79.674 Pain in right toe(s); M19.041 Primary osteoarthritis, right hand; M19.042 Primary osteoarthritis, left hand
CPT/HCPCS: 36415; 80076; 84550; 85025; 99212

== ENCOUNTER 2025-02-22 08:24 | Outpatient (AMB) | payer OTHER, SELFPAY ==
[2025-02-22 08:26] VITALS: BP 110/70; PULSE 74; TEMP 36.6; O2SAT 98; BMI 22.9
--- NOTE | 2025-02-22 08:26 | A.OFFPC_ITS ---
Vital Signs 02/22/25 08:26 Height 5 ft 10 in Weight 159 lb 8 oz BMI 22.9 BP 110/70 Blood Pressure Location Lt brachial Position Sitting Pulse 74 Pulse Source Pulse Oximeter Temp 97.8 F Temp Source Oral Pulse Oximetry (%) 98 Intake Visit Reasons: referral for joints on fingers Position Classifier Required: No Accompanied by: Self / Same As Patient Allergies No Known Allergies Allergy (Verified 02/22/25 08:26) Medication List - Last Reconciled 02/22/25 by Arsenio Schmidt MD No Known Home Meds Tobacco use date assessed: 11/16/24 Dental Screening Dental Screen Date: 11/16/24 HPI referral for joints on fingers HPI Details History - The patient is a 59-year-old male pres enting with persistent pain in the right big toe joint and swelling and pain in the left hand's fifth digit. - The right big toe joint pain has been ongoing and causes intermittent discomfort. It was previously more constant but has shown some improvement after reducing protein intake. - The pain occasionally throbs and becom es stiff, especially during exercise, impacting the patient's ability to perform certain movements like squats. - The left hand's fifth digit exhibits n odules following an incident a few weeks ago, where the patient struck it against a faucet, resulting in increased sensitivity. The nodules are painful when touched. - Liver enzyme tests performed earlier i ndicated a slightly elevated liver enzyme, prompting the need for further testing. 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 - The patient has made dietary modificat ions, specifically reducing protein intake, in response to prior medical advice. Diagnostic Results: - Labs: One liver enzyme level was found to be slightly elevated; uric acid levels were not noted previously. Problem List - Osteoarthritis of the left hand fifth digit - Persistent pain in the right big toe j oint Patient Instructions - Proceed with laboratory tests as order ed. - Follow up with a hand specialist for t he evaluation - Await results of uric acid level and l iver enzyme tests. - Consider medication if uric acid level s are elevated to prevent flare-ups of toe joint pain. Review of Systems - General: No fever no chills - Neurological: No headaches no dizziness - Ear nose throat: No sore throat no hearing difficulty no ear pain - Cardiovascular: No syncope, no chest pain, no palpitations - Gastrointestinal: No nausea vomiting or diarrhea Physical Exam General: No acute distress HEENT: No acute findings Neck: Supple Respiratory system: Able to talk in full sentences Cardiovascular: S1-S2 regular in rate and rhythm Gastrointestinal: No pain Extremities: Left hand 5th digit distal phalanx nodules painful [employer]: Alert awake oriented x3 motor sensory intact Skin: Normal turgor [facility] Surgical History Status post ablation of incompetent vein using laser (12/27/21) Social History Housing: House Patient Tobacco Use Status: Never used Tobacco e-Cigarette/Vaping Use: Never Used Second Hand Smoke Exposure: No service: Yes Current occupational status: employed Cognitive needs: No Hearing needs: No Vision needs: Yes Questionnaire Thrive Questionnaire Date Thrive assessed: 02/22/25 I am a: Patient What is your living situation today?: I have a steady place to live Within the past 12 months, did the food you bought not last and you didn't have the money to get more?: Never true Within the past 12 months, did you worry whether your food would run out before you got money to buy more?: Never true Do you have trouble paying for medicines?: No Do you have trouble getting transportation to medical appointments?: No Do you have trouble paying your heating and electricity bill?: No Do you have trouble taking care of your child, family member or friend?: No Do you have trouble with day-to-day activities such as bathing, preparing meals, shopping, managing finances, etc.?: No Are you currently unemployed and looking for a job?: Yes Are you interested in more education?: No Please select the resources that you would like help with: None Currently or been in a relationship where the following occur: No concerns reported THRIVE Score: 0 LU-7 AMB Questionnaire LU-7 Date LU - 7 assessed: 11/16/24 Source: Developed by Drs. Rajesh Barajas, Reema Mathew, Alfonzo Pressley and colleagues, with an educational phan from [employer]. Physical exam (Primary Care) Vital Signs: Last Vital Signs Temp 97.8 F 02/22/25 08:26 Pulse 74 02/22/25 08:26 BP 110/70 02/22/25 08:26 Pulse Ox 98 02/22/25 08:26 BMI result Body Mass Index 22.9 Tobacco/Smoking Status: Tobacco use Status Tobacco use date assessed 11/16/24 02/22/25 08:28 Patient Tobacco Use Status Never used Tobacco 02/22/25 08:28 e-Cigarette/Vaping Use Never Used 02/22/25 08:28 Thrive Assessment: Date of Thrive Assessment Date Thrive assessed 02/22/25 02/22/25 08:28 Currently or been in a relationship where the following occur: No concerns reported Coding Level of Care Code Est Pt Level 3 (92922) Diagnoses Finger pain, left M79.645 Pain of right great toe M79.674 Laterality: right Primary osteoarthritis of both hands M19.041; M19.042 Osteoarthritis type: primary Laterality: bilateral Assessment & Plan Assessment & Plan (1) Finger pain, left: Code(s): M79.645 - Pain in left finger(s) Category: Medical (2) Great toe pain: Code(s): M79.676 - Pain in unspecified toe(s) Category: Medical Qualifiers: Laterality: right Qualified Code(s): M79.674 - Pain in right toe(s) (3) Osteoarthritis, hand: Code(s): M19.049 - Primary osteoarthritis, unspecified hand Category: Medical Qualifiers: Osteoarthritis type: primary Laterality: bilateral Qualified Code(s): M19.041 - Primary osteoarthritis, right hand; M19.042 - Primary osteoarthritis, left hand Plan History - The patient is a 59-year-old male presenting with persistent pain in the right big toe joint and swelling and pain in the left hand's fifth digit. - The right big toe joint pain has been ongoing and causes intermittent discomfort. It was previously more constant but has shown some improvement after reducing protein intake. - The pain occasionally throbs and becomes stiff, especially during exercise, impacting the patient's ability to perform certain movements like squats. - The left hand's fifth digit exhibits nodules following an incident a few weeks ago, where the patient struck it against a faucet, resulting in increased sensitivity. The nodules are painful when touched. - Liver enzyme tests performed earlier indicated a slightly elevated liver enzyme, prompting the need for further testing. 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 - The patient has made dietary modifications, specifically reducing protein intake, in response to prior medical advice. Diagnostic Results: - Labs: One liver enzyme level was found to be slightly elevated; uric acid levels were not noted previously. Problem List - Osteoarthritis of the left hand fifth digit - Persistent pain in the right big toe joint Patient Instructions - Proceed with laboratory tests as ordered. - Follow up with a hand specialist for the evaluation - Await results of uric acid level and liver enzyme tests. - Consider medication if uric acid levels are elevated to prevent flare-ups of toe joint pain. Orders: Orders Uric Acid Today M19.049 - Primary osteoarthritis, unspecified hand, M79.645 - Pain in left finger(s), M79.676 - Pain in unspecified toe(s) Complete Blood Count Auto Diff Today M19.049 - Primary osteoarthritis, unspecified hand, M79.645 - Pain in left finger(s), M79.676 - Pain in unspecified toe(s) Liver Panel Today M19.049 - Primary osteoarthritis, unspecified hand, M79.645 - Pain in left finger(s), M79.676 - Pain in unspecified toe(s) Referrals Hand Surgery Referral M79.645 - Pain in left finger(s)
--- OUTSIDE RECORDS SUMMARY | 2025-02-22 08:36 | XMS_ITS | Patient Health Record ---
Author Organization [facility] Address [address] [place] [address] Care Team Providers Care Drop Wire Aligner Name Role Phone Brayan MUNROE, [facility] Primary Care Provider Rajesh Angulo [phone] Reason For Referral No Information Medications Medication SIG (Take, Route, Frequency, Duration) Notes Start Date End Date Status potassium 1 tab Oral Active Vitamin A 69585 UNIT 1 capsule with food or milk Orally Once a day Active MoviPrep 100 GM as directed Orally a s directed for 1 day 12/29/2013 Active Fish Oil 1000 MG 1 capsule Orally Onc e a day Active Glucosamine Chondr 1500 Complx Orally Active Sonia 1 tab Oral Active Vitamin E 100 UNIT 1 capsule Orally Onc e a day Active Vitamin D 400 UNIT Orally A ctive Problems Problem Type SNOMED Code ICD Code Onset Dates Problem Status W/U Status Risk Notes Problem Colon cancer screening (V76.51) Active confirmed Plan Of Treatment Future Test Test Name Order Date COLONOSCOPY 12/29/2013 Insurance Providers Payer Name Payer Address Payer Phone Subscriber Number Group Number Insured Name Patient Relationship to Insured Coverage Start Date Coverage End Date [facility] [address] [place], [place] [id number] [phone] [id number] JAYSON ZENDEJAS Self - patient is the insured Medical (General) History Medical History History ICD Code Denies MO,DM,CVA,Lung disease,renal dise ase Surgical History Surgery Date(Month/Year) vasectomy 1993 Left knee
--- OUTSIDE RECORDS SUMMARY | 2025-02-22 08:36 | XMS_ITS | Clinical Summary ---
Author Organization [facility] Address [address] [place] [address] Phone Care Team Providers Care Emergency Medical Dispatcher Name Role Phone Arsenio Schmidt MD Primary Care Provider [phone] Social History Tobacco Use Types Packs/Day Years Used Date Smoking Tobacco: Never Assessed Education Answer Date Recorded Are you interested in more education? Not on [place] e 01/12/2024 Are you concerned about learning? Not on file 01/12/2024 No 01/12/2024 No 01/12/2024 Digital Access Answer Date Recorded No 01/12/2024 No 01/12/2024 Reliable internet access at home? Not on file 01/12/2024 Device with a working camera? Not on file Sex and Gender Information Value Date Recorded Sex Assigned at Not on file Legal Sex Male 9:44 PM EDT Gender Identity Not on file Sexual Orientation Not on file Plan of Treatment Not on file Medical Devices Not on file Insurance [facility] [place] [address] [place] [address] HEALTH PLAN [facility] Care Teams Emergency Medical Dispatcher Relationship Specialty Start Date End Date Arsenio Schmidt MD [address] [address] PCP - General Internal Medicine 01/21/24 Additional Source Comments The information contained in this document represents components of the legal health record. It is not the complete legal health record.[facility]
== END 2025-02-22 12:03 | disposition home or self-care (01) ==
LOC: HO.HMCC 08:25
PROVIDERS: PCP Internal Medicine; Visit Provider Internal Medicine
DX: M79.645 Pain in left finger(s) (principal); M79.674 Pain in right toe(s); M19.041 Primary osteoarthritis, right hand; M19.042 Primary osteoarthritis, left hand